=== PATIENT | female | born 1990 | race Caucasian/White ===

== ENCOUNTER 2017-04-07 22:02 | Inpatient (IN) | payer SELFPAY ==
[2017-04-07] MEDS ORDERED: OXYTOCIN 20 UNIT in LR 1,000 ML IV PRN (22:21)
[2017-04-07] MEDS ORDERED: EPSOM SALT 454 GM TP PRN (22:21)
[2017-04-07] MEDS ORDERED: OLIVE OIL 118 ML BTL MISC PRN (22:21)
[2017-04-07] MEDS ORDERED: TERBUTALINE SULFATE 1 MG/ML VIAL IV PRN (22:21)
[2017-04-07] MEDS ORDERED: LR 1,000 ML IV PRN (22:21)
[2017-04-07] MEDS ORDERED: IBUPROFEN 600 MG TAB PO PRN (22:21)
[2017-04-07] MEDS ORDERED: MISOPROSTOL 200 MCG TAB PR PRN (22:21)
[2017-04-07] MEDS ORDERED: AMPICILLIN SODIUM 1 GM in NS 50 ML IV SCH ×2 (22:30→23:29)
[2017-04-07] MEDS ORDERED: AMPICILLIN SODIUM 2 GM in STERILE WATER INJ 25 ML IV ONE (22:45)
[2017-04-08 01:14] LABS: PLATELET COUNT 216 10^3/uL (150-400)
[2017-04-08] MEDS ORDERED: BUPIVACAINE 0.25% 30 ML SDV ONE (01:32)
[2017-04-08] MEDS ORDERED: PHENYLEPHRINE HCL 100 MCG/ML SYR ONE (01:32)
[2017-04-08] MEDS ORDERED: fentaNYL 100 MCG/2 ML INJ ONE (01:33)
[2017-04-08] MEDS ORDERED: fentaNYL 200 MCG, BUPIVACAINE 0.5% 20 ML in NS 100 ML EP SCH ×2 (02:00)
[2017-04-08] MEDS ORDERED: LIDOCAINE 1% 300 MG/30 ML SDV ONE (02:06)
[2017-04-08] MEDS ORDERED: OLIVE OIL 118 ML BTL ONE (02:06)
[2017-04-08] MEDS ORDERED: TERBUTALINE SULFATE 1 MG/ML VIAL ONE (02:06)
[2017-04-08] MEDS ORDERED: AMMONIA AROMATIC 1 EACH AMP IH ONE (02:06)
[2017-04-08] MEDS ORDERED: OXYTOCIN 10 UNIT/ML VIAL ONE (02:07)
[2017-04-08] MEDS ORDERED: PHENYLEPHRINE HCL 100 MCG/ML SYR IVP PRN (02:12)
[2017-04-08] MEDS ORDERED: ONDANSETRON 4 MG/2 ML VIAL IVP PRN (02:12)
[2017-04-08] MEDS ORDERED: NALOXONE HCL 0.4 MG/ML INJ IVP PRN (02:12)
--- NOTE | 2017-04-08 02:19 | PREANESOB ---
Obstetric Pre-Anesthesia Info - General Info Proposed Procedure: labor epidural - Info Status: Full Term - Labor Status Cervical Dilation per last OB SVE: 9 Labor Epidural: Proposed (see OB notes in other software) Anesthesia ROS: Patient denies heart, lung, renal, hepatic, hematologic, or spine problems. Is currently , in labor. Allergies/Adverse Reactions: Allergy/AdvReac Type Severity Reaction Status Date / Time No Known Allergies Allergy Unverified 04/07/17 22:21 Visit Medications: Generic Name Dose Route Start Last Admin Trade Name Freq PRN Reason Stop Dose Admin Lactated Ringer's 1,000 mls @ 0 mls/hr 04/07/17 22:21 04/08/17 00:30 Lr IV 04/08/17 22:20 1,000 mls PRN PRN Administration SEE PROTOCOL CONDITIONS Protocol Per Protocol Oxytocin 20 unit/ Lactated 1,002 mls @ 150 mls/hr 04/07/17 22:21 Ringer's IV PRN PRN Post- bleeding Fentanyl 200 mcg/ Bupivacaine 100 mls @ 0 mls/hr 04/08/17 02:00 HCl 20 ml/ Sodium Chloride EP 04/18/17 01:59 CONT TY Protocol As Directed Ibuprofen 600 mg 04/07/17 22:21 Motrin PO 10/04/17 22:20 Q6HRS PRN post , inflammation Magnesium Sulfate 454 gm 04/07/17 22:21 Epsom Salt TP 10/04/17 22:20 Q1H PRN perineal discomfort Misoprostol 800 - 1,000 mcg 04/07/17 22:21 Cytotec RI ONCE PRN Vaginal Atony/Bleeding [place]oxie Oil 118 ml 04/07/17 22:21 Sweet Oil MISC 10/04/17 22:20 ONCE PRN perineal massage Terbutaline Sulfate 0.25 mg 04/07/17 22:21 Brethine IV 10/04/17 22:20 ONCE PRN Tachysystole Discontinued Medications Generic Name Dose Route Start Last Admin Trade Name Freq PRN Reason Stop Dose Admin Ammonia (Aromatic Spirit) Confirm 04/08/17 02:06 Ammonia Aromatic Administered 04/08/17 02:07 Dose 1 each IH .STK-MED ONE Bupivacaine HCl Confirm 04/08/17 01:32 Sensorcaine 0.25% Sdv Administered 04/08/17 01:33 Dose 30 ml .ROUTE .STK-MED ONE Fentanyl Confirm 04/08/17 01:33 Sublimaze Administered 04/08/17 01:34 Dose 100 mcg .ROUTE .STK-MED ONE Ampicillin Sodium 2 gm/ 25 mls @ 100 mls/hr 04/07/17 22:45 Sterile Water IV 04/07/17 22:59 ONCE ONE Fentanyl 200 mcg/ Bupivacaine 100 mls @ 0 mls/hr 04/08/17 02:00 HCl 20 ml/ Sodium Chloride EP 04/18/17 01:59 CONT TY Protocol As Directed Lidocaine HCl Confirm 04/08/17 02:06 Lidocaine Hcl 1% Administered 04/08/17 02:07 Dose 300 mg .ROUTE .STK-MED ONE [place]ie Oil Confirm 04/08/17 02:06 Sweet Oil Administered 04/08/17 02:07 Dose 118 ml .ROUTE .STK-MED ONE Oxytocin Confirm 04/08/17 02:07 Pitocin Administered 04/08/17 02:08 Dose 40 unit .ROUTE .STK-MED ONE Phenylephrine HCl Confirm 04/08/17 01:32 Neosynephrine Administered 04/08/17 01:33 Dose 1,000 mcg .ROUTE .STK-MED ONE Terbutaline Sulfate Confirm 04/08/17 02:06 Brethine Administered 04/08/17 02:07 Dose 1 mg .ROUTE .STK-MED ONE - Anesthesia History Response to Local Anesthetics: Normal Anesthesia & Operative History: Other (Specify) (previously had ga for dental work without problem) Family Anesthesia History: Negative - Social History Substance Use/Abuse: Denies - Focused Exam Neck exam: FROM Mallampati Score: Class 2 Mouth exam: normal dental/mouth exam Pulmonary: no respiratory distress Cardiovascular: regular rate and rhythym Labs: 04/07/17 22:30 Patient ABO/Rh O NEGATIVE 04/07/17 22:30 - Plan Anesthetic Plan: segundo Consent Signed and on Chart: Yes Patient/Guardian Understands and Agrees to Plan: Yes Urgent/Emergent Case: Sanjanamichaela rowelinda completed preop but documented later for safe timely pt care General Comments: see additional info in other software
[2017-04-08] MEDS ORDERED: fentaNYL 2MCG/ML/BUP 0.1% RTU 100 ML EP SCH (02:30)
[2017-04-08] MEDS ORDERED: LR 500 ML IV SCH (02:30)
[2017-04-08] MEDS ORDERED: ACETAMINOPHEN 325 MG TAB PO PRN (03:41)
--- NOTE | 2017-04-08 03:47 | OBDEL ---
Info Type: Vaginal Presentation at Delivery: Vertex L&D Analgesia/Anesthesia Type: Epidural GBS+: No Intrapartum Medications: Generic Name Dose Route Start Last Admin Trade Name Freq PRN Reason Stop Dose Admin Lactated Ringer's 1,000 mls @ 0 mls/hr 04/07/17 22:21 04/08/17 00:30 Lr IV 04/08/17 22:20 1,000 mls PRN PRN Administration SEE PROTOCOL CONDITIONS Protocol Per Protocol Discontinued Medications Generic Name Dose Route Start Last Admin Trade Name Freq PRN Reason Stop Dose Admin Ampicillin Sodium 2 gm/ 25 mls @ 100 mls/hr 04/07/17 22:45 04/08/17 03:14 Sterile Water IV 04/07/17 22:59 Not Given ONCE ONE - Care Provider Newspaper Library Manager/IN STORE MARKETING ASSOCIATE: Prabha Stanley Vaginal Delivery - Delivery Provider Delivery Physician/CNM: Sophie Rolle - Labor and Delivery Onset of Contractions Date: 04/07/17 Onset of Contractions Time: 00:30 Onset of Contractions Type: Spontaneous Rupture of Membranes Date: 04/08/17 Rupture of Membranes Time: 01:25 Rupture of Membranes Type: Spontaneous Amniotic Fluid Color: Meconium Stained Dilation Complete Date: 04/08/17 Dilation Complete Time: 02:34 Placenta Delivery Date: 04/08/17 Placenta Delivery Time: 03:21 Total Hours of Labor: 26 Vaginal Sponge Count Correct: Yes Vaginal Needle Count Correct: Yes Vaginal Sweep Performed: No EBL: 300 Data ROGER: 04/09/17 Gestational Age: 39 week(s) and 6 day(s) [place] Delivery Date: 04/08/17 Delivery Time: 03:09 Sex of Infant: Male Score (1 Min): 8 Score (5 Min): 9 ICD10 Worksheet Patient Problems: Problems Problem Status Onset (spontaneous vaginal delivery) Acute
--- NOTE | 2017-04-08 11:09 | GHP ---
[f rep st] PREOP HISTORY AND PHYSICAL DATE OF ADMISSION: 04/07/2017 HISTORY UPON ADMISSION: The patient is a 26-year-old, G4, P3, white female at 39+ weeks gestation, who presented to Labor and Delivery after a failed home with extreme exhaustion and requesting assistance with delivery. The patient's due date is April 09 and the patient is 39 weeks and 6 days. The patient reports spontaneous onset of labor approximately midnight and throughout the day has had contractions 7-15 minutes apart with intense back pain. The layup worker reports that an early exam on 04/07 revealed the patient to be 5 cm and there was little change when the patient was initially evaluated at [facility] and was 6 cm, 80% effaced, at high station. The patient denies any leakage of fluid, upon admission, with good movement. No bleeding. Upon admission, the patient requested pain relief and help with delivery. However, upon reviewing options of morphine sleep versus epidural, the patient declined all of these. She then requested an ultrasound as she had concern that there was some abnormality going on as the labor was much different than her prior labors. An ultrasound was obtained and there is an estimated 8 pound infant in the vertex presentation with no obvious abnormalities. Fluid level was 4 cm. The patient then requested an epidural, and immediately prior to the epidural placement, she had spontaneous rupture of membranes with light meconium-stained fluid. Contractions have been variably occurring every 2 minutes to 15-20 minutes. However, increased after rupture of membranes to every 3-5 minutes. CARE: The patient has been followed by a inspector circuitry negative from [place] with approximately 6 visits. Patient's has been uncomplicated. Patient's inspector circuitry negative reports no abnormal labs, however, difficulty in obtaining some of these records. Maternal blood type O negative, and GBS is negative. Antibody screen here on admission is negative. PAST MEDICAL HISTORY: Negative. PAST SURGICAL HISTORY: Negative. PAST OBSTETRIC HISTORY: The patient has had 3 term vaginal deliveries at home. First child delivery was complicated with prolonged delivery of the placenta 6 hours later. The second baby was delivered OP. ALLERGIES: The patient has no known drug allergies. CURRENT MEDICATIONS: None. SOCIAL HISTORY: The patient is , lives with her and has 3 children. The patient is a nonsmoker. No alcohol or drug use. REVIEW OF SYSTEMS: The patient had 10-point review of systems and pertinent positives and negatives noted above. LABS: Limited labs at this time. Maternal blood type O negative with antibody screen negative. The inspector circuitry negative related that they were offered Glucola testing but declined, and the GBS is negative. PHYSICAL EXAM: GENERAL: Upon admission the patient is a well-developed, well- nourished, white female, currently comfortable after epidural placement. VITAL SIGNS: The patient's vital signs have been normal, and the patient is afebrile. See nursing documentation for full details. heart tones currently a category 2 tracing with occasional variable decelerations. Good variability and accelerations. Quick recovery from variable decelerations and generally reassuring pattern. PELVIC: Contractions now 3 to 4 minutes apart. Current exam , the patient is completely dilated at +2 station. EXTREMITIES: Nontender, no edema. ASSESSMENT: Intrauterine at 39 weeks 6 days, protracted labor, failed home . GBS negative. Spontaneous rupture of membranes with light meconium fluid. PLAN: Expect vaginal delivery soon. /[id number]/MODL and [id number]/MODL [facility]
--- NOTE | 2017-04-08 11:28 | OBGCSDC ---
General Delivery Information - General Info : 4 Para: 4 Abortions: 0 Type: Vaginal L&D Analgesia/Anesthesia Type: Epidural Admission Date: 04/07/17 Labs: Patient ABO/Rh O NEGATIVE 04/07/17 22:30 Hct 39.4 % (38.0-47.0) 04/07/17 22:30 - Hospital Course : 04/08/17 12:47 S) Pt doing well, reports min pain and bleeding. she is ambulating and voiding without difficulty. She is . She desires discharge home at this time. O) VSS, afebrile constitutional: WNWF, A&Ox3 HEENT: normocephalic, atraumatic, supple Heart: RRR, No murmur Chest: CTA-B Abdomen: Soft, nontender Uterus: Firm at U-1 Lochia: Minimal rubra Perineum: Intact Extremities: Trace edema, and negative Angeles's sign Neuro: Grossly normal A) 26-year-old S/P PPD#1 (<24 hours) P) Discharge home today Continue Pelvic rest x6wks Discussed danger signs (infection, preeclampsia, depression, heavy bleeding, etc ) Recommended f/u with surgical asst (home) in 24-48 hours Vaginal - Delivery Provider Delivery Physician/CNM: Sophie Rolel - Diagnosis Labor: Spontaneous Rupture of Membranes Type: Spontaneous Amniotic Fluid Color: Meconium Stained - Delivery EBL: 300 Data ROGER: 04/09/17 Gestational Age: 39 week(s) and 6 day(s) [place] Delivery Date: 04/08/17 Delivery Time: 03:09 Sex of : Male Score (1 Min): 8 Score (5 Min): 9 Discharge Information - Discharge Information Prescriptions: Ibuprofen [Motrin (*)] 600 mg PO Q6HRS PRN #60 tab PRN Reason: post , inflammation Condition: Good
== END 2017-04-08 11:00 | disposition home or self-care (01) | DRG 775 ==
LOC: FLD 22:02 → OBSVTOIN 22:21
PROVIDERS: ADMIT Obstetrics & Gynecology; ATTEND Obstetrics & Gynecology
PROC: 10E0XZZ Delivery of Products of Conception, External Approach (ICD-10-PCS; principal; 2017-04-08)
DX: O75.81 Maternal exhaustion complicating labor and delivery (principal); Z37.0 Single live birth; Z3A.39 39 weeks gestation of pregnancy; O63.0 Prolonged first stage (of labor)
CPT/HCPCS: J0290; J2370; J2590; J3010; J3105